=== PATIENT | male | born 1935 | race Caucasian/White ===

== ENCOUNTER 2020-02-22 12:45 | Inpatient (IN) | payer MEDICARE ==
[~2020-02-22] VITALS: Ht 180.3 cm; Wt 89.7 kg
[~2020-02-22 12:45] MED LIST: ASPI81CH PO; LISI5 PO; THERAPEUTIC-M1 EAC3 PO; VERA180ERB PO
[2020-02-22 13:15] LABS: Calcium, Ionized (POC) 1.09 mmol/L (1.10-1.46); Chloride (POC) 100 mmol/L (98-108); Creatinine (POC) 1.1 mg/dL (0.8-1.3); Glucose (ISTAT POC) 102 mg/dL (70-99); Hemoglobin (POC) 13.3 g/dL (13.5-17.5); Potassium (POC) 4.1 mmol/L (3.5-5.5); Sodium (POC) 133 mmol/L (135-148); Total CO2 (POC) 21 mmol/L (21-32)
[2020-02-22 13:29] LABS: Hematocrit 39.8 % (37.0-53.0); Hemoglobin 13.6 g/dL (13.5-17.5); Mean Corpuscular HGB 31.1 pg (26.0-34.0); Mean Corpuscular HGB Conc 34.2 g/dL (31.5-36.5); Mean Corpuscular Volume 91 fL (80-100); Mean Platelet Volume 9.8 fL (9.1-12.4); Platelet Count 232 K/mm3 (150-400); RDW Coefficient Variation 13.5 % (11.7-14.2); RDW Standard Deviation 45.3 fL (35.1-46.3); Red Blood Cell Count 4.38 M/mm3 (4.30-5.90); White Blood Cell Count 11.59 K/mm3 (4.00-11.30)
[2020-02-22 14:05] LABS: Alanine Aminotransfer (ALT/SGP 18 U/L (12-78); Albumin, Blood 3.2 g/dL (3.4-5.0); Albumin/Globulin Ratio 1.2 (0.8-1.8); Alk Phos 71 U/L (50-136); Anion Gap 12 mmol/L (6-16); Aspartate Aminotrans (AST/SGOT 13 U/L (12-37); Bilirubin, Total 0.3 mg/dL (0.1-1.0); Blood Urea Nitrogen 16 mg/dL (8-24); Bun/Creatinine Ratio 15.1 (12.0-20.0); CHOL/HDL RATIO 2.8; CO2, Blood 21 mmol/L (21-32); Calcium, Blood 8.3 mg/dL (8.5-10.1); Chloride, Blood 105 mmol/L (98-108); Cholesterol 191 mg/dL (50-200); Creatinine, Blood 1.06 mg/dL (0.60-1.20); Globulin, Blood 2.6 g/dL (2.2-4.0); Glomerular Filtration Rate >60 (60-); Glucose, Blood 100 mg/dL (70-99); HDL Cholesterol 69 mg/dL (>39); LDL/HDL RATIO 1.4; Low Density Lipoprotein Chol 94 mg/dL (0-110); Magnesium, Blood 2.1 mg/dL (1.6-2.4); Potassium, Blood 4.3 mmol/L (3.5-5.5); Sodium, Blood 138 mmol/L (136-145); Total Protein, Blood 5.8 g/dL (6.4-8.2); Triglycerides 139 mg/dL (30-160); Troponin I <0.015 ng/mL (0.000-0.040); Very Low Density Lipoprot Chol 28 mg/dL (6-32)
--- NOTE | 2020-02-22 15:53 | NUR ---
ADMIT PT ARRIVED TO ICU 8 AT 1530, ALERT AND ORIENTED. SHEATH TO R GROIN WITH PRESSURE BAG HOOKED UP. SITE C/D/I, SOFT, NO HEMATOMA. PT GIVEN INSTRUCTIONS REGARDING ACTIVITY RESTRICTIONS AND HE VERBALIZED UNDERSTANDING. PT'S AT THE BEDSIDE. CONTINUING TO MONITOR.
[2020-02-22] MEDS ORDERED: Prinivil10 MG PO (16:21)
[2020-02-22] MEDS ORDERED: VERA180ERB PO (16:21)
[2020-02-22] MEDS ORDERED: ASPI325 PO (16:21)
--- NOTE | 2020-02-22 18:01 | NUR ---
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 HE REMAINS ALERT AND ORIENTED. DENIES CHEST PAIN. HE IS BEING COOPERATIVE, LAYING FLAT WITH THE SHEATH STILL IN PLACE. HEPARIN GTT INFUSING THROUGH FEMORAL SHEATH. SITE IS C/D/I, SOFT, NO HEMATOMA. LUNGS REMAIN CLEAR, SR, BP STABLE. NO VOID YET THIS SHIFT. CONTINUING TO MONITOR.
[2020-02-22 20:38] LABS: Source, Urine Catheter
[2020-02-22 20:43] LABS: Appearance, Urine Clear (Clear); Bilirubin, Urine Neg (Neg); Blood, Urine 1+ (Neg); Color, Urine Yellow (P-Yellow); Glucose Qualitative, Urine Neg (Neg); Ketones, Urine 3+ (Neg); Leukocyte Esterase, Urine Neg (Neg); Nitrite, Urine Neg (Neg); Protein, Urine Neg (Neg); Urobilinogen, Urine NORM (Normal)
[2020-02-22 20:52] LABS: Red Blood Cells, Urine 0-2 /hpf (0-2); White Blood Cells, Urine 0-2 /hpf (0-5)
[2020-02-22 20:53] LABS: Bacteria Few /hpf; Hyaline Casts 0-2 /lpf (0-2); Squamous Epithelial Cells Not Seen /hpf (Few)
--- NOTE | 2020-02-22 21:29 | NUR ---
PATIENT IN BED LAYING FLAT, AVOIDING HIP FLEXION AND KEEPING LEGS STRAIGHT DUE TO SHEATH IN PLACE TO RIGHT GROIN, HEPARIN DRIP INFUSING TO SHEATH. SITE SOFT WITH NO OOZING. DOPPLER PULSES TO BOTH FEET. PATIENT DENIES PAIN. MICHAELS PLACED DRAINING CLEAR YELLOW URINE. BLUEPRINT DEVELOPER SHOWING SINUS RHYTHM WITH OCCASIONAL PVC SEE RHYTHM STRIPS. PATIENT VALDO PO WELL. PATIENT VERBALIZED UNDERSTANDING REGARDING KEEPING LEGS FLAT AND AVOIDING GROIN FLEXION.
[2020-02-23 03:37] LABS: BASOPHILS ABSOLUTE AUTO 0.06 K/mm3 (0.00-0.23); BASOPHILS PERCENT AUTO 1 % (0-2); EOSINOPHILS ABSOLUTE AUTO 0.27 K/mm3 (0.00-0.68); EOSINOPHILS PERCENT AUTO 2 % (0-6); Hematocrit 39.1 % (37.0-53.0); Hemoglobin 13.4 g/dL (13.5-17.5); IMMATURE GRAN ABSOLUTE AUTO 0.06 K/mm3 (0.00-0.10); IMMATURE GRAN PERCENT AUTO 1 % (0-1); LYMPHOCYTES PERCENT AUTO 15 % (21-46); MONOCYTES ABSOLUTE AUTO 0.84 K/mm3 (0.16-1.47); MONOCYTES PERCENT AUTO 7 % (4-13); Mean Corpuscular HGB 31.2 pg (26.0-34.0); Mean Corpuscular HGB Conc 34.3 g/dL (31.5-36.5); Mean Corpuscular Volume 91 fL (80-100); NEUTROPHILS ABSOLUTE AUTO 8.68 K/mm3 (1.96-9.15); NEUTROPHILS PERCENT AUTO 75 % (41-73); Platelet Count 229 K/mm3 (150-400); RDW Coefficient Variation 13.7 % (11.7-14.2); RDW Standard Deviation 45.2 fL (35.1-46.3); Red Blood Cell Count 4.29 M/mm3 (4.30-5.90); White Blood Cell Count 11.61 K/mm3 (4.00-11.30)
[2020-02-23 04:10] LABS: Anion Gap 5 mmol/L (6-16); Blood Urea Nitrogen 14 mg/dL (8-24); CO2, Blood 27 mmol/L (21-32); CPK Creatine Kinase 298 U/L (39-308); Chloride, Blood 104 mmol/L (98-108); Creatine Kinase MB Index 13.4 (0.0-4.0); Creatinine, Blood 0.87 mg/dL (0.60-1.20); Glomerular Filtration Rate >60 (60-); Glucose, Blood 97 mg/dL (70-99); Potassium, Blood 4.4 mmol/L (3.5-5.5); Sodium, Blood 136 mmol/L (136-145)
--- NOTE | 2020-02-23 05:53 | NUR ---
SUMMARY PATIENT SLEEPING OFF AND ON T/O NIGHT. SHEATH REMAINS IN PLACE TO RIGHT GROIN, HEPARIN NOW OFF AND PRESSURE LINE IN PLACE. NO C/O PAIN T/O NIGHT. PLAN TO REMOVE SHEATH TODAY AT 1000 IF PTT LESS THAN 40
--- NOTE | 2020-02-23 09:02 | NUR ---
ASSUMED CARE OF PT. PT SLEEPING, AROUSES TO VOICE. DENIES C/O CHEST PAIN. PT SUPINE/FLAT PER PROTOCOL SHEATH IS TO RIGHT GROIN. SHEATH IS ATTATCHED TO PRESSURE BAG. PTT TO BE DRAWN AT 0930. IF PTT<40, SHEATH TO BE REMOVED. RIGHT GROIN W/O SWELLING, HEMATOMA, BLEEDING, OR PAIN. ECHO IN PROGRESS.
--- NOTE | 2020-02-23 11:09 | NUR ---
Echocardiogram using 0.50ml of Definity contrast performed.
--- NOTE | 2020-02-23 11:40 | NUR ---
PTT <40SEC. R GROIN SHEATH REMOVED AT 1O48, MAUNAL PRESSURE HELD X 35MIN. OPSITE TO R GROIN. SITE W/O HEMATOMA, SWELLING, BLEEDING. PT EDUCATED TO HOLD PRESSURE TO GROIN IF HE COUGHS/SNEEZES. DR CONWAY IN TO SEE PT. TOPROL XL ADDED. PT TO STAY SUPINE X 4HRS PER DR CONWAY.
[2020-02-23 16:17] LABS: Hemoglobin 15.2 g/dL (13.5-17.5)
--- NOTE | 2020-02-23 17:13 | NUR ---
AT 1545 DURING ASSESSMENT PT C/O SEVERE RIGHT LOWER BACK PAIN W DEEP BREATH. BP STABLE. DR CONWAY CALLED. STAT CT OD ABD/PELVIS ORDERED, ALONG W STAT H&H. NO RETROPERITONEAL BLEED PER DR CONWAY. H&H STABLE. ABD AORTA ANEURYSM FOUND ON CT SCAN; STABLE. PT WILL BE FOLLOWED UP OUTPT PER DR CONWAY. FEM STOP LOOSENED. PT SAT UP TO 30DEGREES; DOING WELL AT THIS TIME. PAIN MEDS ORDERED PRN FOR CHRONIC BACK PAIN.
--- NOTE | 2020-02-23 18:53 | NUR ---
FEMSTOP REMOVED. R GROIN SOFT W/O HEMATOMA, SWELLING, BLEEDING. PT STATES HIS BACK FEELS MUCH BETTER SITTING UP.
--- NOTE | 2020-02-23 21:19 | NUR ---
ASSUMPTION OF CARE ASSUMED CARE @ 1900 FROM ABHAY HENNING. PT A&OX4. NORMAL SINUS ON THE DIRECTOR MARKETING ANALYTICS c OCASSIONAL PVC'S. NO COMPLAINTS OF CP, ABD PAIN, OR GROIN SITE PAIN AT THIS TIME. FEMORAL SITE WITH SMALL HEMATOMA/ DRIED BLOOD FROM EARLIER TODAY, CONFIRMED THE SITE HAS NOT CHANGED WITH DAY SHIFT NURSE. FEMSTOP OFF THE PT. WILL CONTIUE TO MONITOR FEMORAL SITE.
--- NOTE | 2020-02-24 00:18 | NUR ---
DIFFICULTY SLEEPING PT REPORTS DIFFICULTY SLEEPING R/T HUMMING SOUND COMING FROM VITAL SIGN MONITOR IN ROOM. OFFERED TO TURN ON A FAN OR PROVIDE EARPLUGS, PT DECLINED AT THIS TIME.
--- NOTE | 2020-02-24 02:55 | NUR ---
FEMSTOP APPLIED APPROXIMATE 4CM HEMATOMA NOTED TO R GROIN SITE, NON-TENDER. VSS. FEMSTOP APPLIED. WILL REASSESS AFTER 10 MINS OF PRESSURE.
--- NOTE | 2020-02-24 05:57 | NUR ---
SHIFT SUMMARY PT REMAINS A&OX4. NO C/O CP, ABD PAIN, OR SOB. FEMORAL ACCESS SITE WITH SMALL HEMATOMA, FEMSTOP PLACED BACK ON THE PATIENT FOR APPROXIMATELY 30 MINUTES. MICHAELS CATHETER WAS ACCIDENTALLY DISLODGED BY PT WHILE SLEEPING. PT STATED HE IS ABLE TO VOID WITHOUT IT.
--- NOTE | 2020-02-24 07:51 | NUR ---
CARE OF PT ASSUMED AT 0700. R GROIN SITE CHECKED WITH NOCT RN. R GROIN WITH SMALL <2CM ROPE LIKE HEMATOMA. AREA IS TENDER, NO SWELLING, NO BLEEDING. OPSITE DRY AND INTACT. PT SBA TO CHAIR FOR BREAKFAST. PT DENIES COMPLAINTS OTHER THAN BEING "FATIGUED FROM BEING IN BED FOR SO LONG". PT VERY ANXIOUS TO BE DISCHARGED HOME THIS AM. VSS.
--- NOTE | 2020-02-24 08:17 | NUR ---
PT SOMEWHAT IRRITABLE WHILE TAKING AM MEDS. PT INSIST THAT HE NEVER TOOK BLOOD THINNERS AFTER HIS OTHER PROCEDURES. PT STATES HIS BP IS HIGH NOW BECAUSE "WE CHANGED HIS MEDS". PT EDUCATED THAT HE WILL NEED TO TAKE A BLOOD THINNER LIKE BRILINTA OR PLAVIX FOR AT LEAST 6MONTHS OR HIS STENTS COULD CLOT LEADING TO . PT REMINDED THAT HE HAD EXTENSIVE CLOTTING TO STENTS WITH THIS HEART ATTACK. PT RESISTANT TO INFORMATION. PT OPEN TO HAVING PRESENT WHEN DR COMES TO TALK TO HIM. PT'S CALLED AND UPDATED. STATES PT IS VERY STUBBORN AND DID STOP TAKING RECOMMENDED BLOOD THINNERS AFTER HIS OTHER PROCEDURES. DR CONWAY CALLED AND UPDATED. DR CONWAY WILL COME TALK WITH PT WHEN AT BEDSIDE; AROUND 9:30.
[2020-02-24] MEDS ORDERED: TICA90TA PO (12:45)
[2020-02-24] MEDS ORDERED: METO25ER PO (12:46)
[2020-02-24] MEDS ORDERED: NITROGLYCERIN (12:50)
--- NOTE | 2020-02-24 14:15 | NUR ---
DR CONWAY AT BEDSIDE TO SEE PT AT 1130. AT BEDSIDE WELL. PT AGREEABLE TO MEDICATION CHANGES INCLUDING TAKING BRILINTA AND ASA FOR A FULL YEAR. PT AND PT'S EXPRESSED HAPPINESS THAT DR CONWAY WILL BE HIS NEW RECREATION WORKER. DR CONWAY DID CHECK R GROIN AND ALSO NOTED A SMALL KNOT/HEMATOMA. DISCHARGE ORDERS WRITTEN. [facility] BRIL[facility]TA ( [facility] NOT C[facility] THIS) WHICH WAS CALLED INTO [facility]. PT HAS A NEW PCP AT [facility] (BECKY SUAREZ) THIS INFO WAS GIVEN TO PT/PT'S . VERBAL AND WRITTEN DC INFO GIVEN TO BOTH PT AND PT'S REGARDING MEDS, APPOINTMENTS, AND GROIN CARE. BRILINTA AND ASA CONTRACT SIGNED BY PT. FEM ART ACCESS DC FORM GIVEN TO PT. FOLLOW UP APPOINTMENT MADE FOR PT. STENT CARD GIVEN TO PT. BRILINTA SAVINGS CARD GIVEN TO PT. PT AND ENCOURAGED TO CALL BACK IF THEY HAVE ANY QUESTIONS OR CONCERNS.
== END 2020-02-24 13:44 | disposition home or self-care (01) | DRG 247 ==
LOC: ER 12:45 → ICUW 13:17 → ICUE 13:17
PROVIDERS: Emergency Medicine; ADMIT Internal Medicine Interventional Cardiology
PROC: 027136Z Dilation of Coronary Artery, Two Arteries with Three Drug-eluting Intraluminal Devices, Percutaneous Approach (ICD-10-PCS; principal; 2020-02-22)
PROC: 4A023N7 Measurement of Cardiac Sampling and Pressure, Left Heart, Percutaneous Approach (ICD-10-PCS; 2020-02-22)
PROC: B2111ZZ Fluoroscopy of Multiple Coronary Arteries using Low Osmolar Contrast (ICD-10-PCS; 2020-02-22)
PROC: B2121ZZ Fluoroscopy of Single Coronary Artery Bypass Graft using Low Osmolar Contrast (ICD-10-PCS; 2020-02-22)
PROC: B41D1ZZ Fluoroscopy of Aorta and Bilateral Lower Extremity Arteries using Low Osmolar Contrast (ICD-10-PCS; 2020-02-22)
PROC: 02C03ZZ Extirpation of Matter from Coronary Artery, One Artery, Percutaneous Approach (ICD-10-PCS; 2020-02-22)
DX: I21.09 ST elevation (STEMI) myocardial infarction involving other coronary artery of anterior wall (principal); T82.855A Stenosis of coronary artery stent, initial encounter; K51.90 Ulcerative colitis, unspecified, without complications; I25.10 Atherosclerotic heart disease of native coronary artery without angina pectoris; Z95.1 Presence of aortocoronary bypass graft; Z87.891 Personal history of nicotine dependence; Z79.82 Long term (current) use of aspirin; I10 Essential (primary) hypertension; I49.3 Ventricular premature depolarization; E78.5 Hyperlipidemia, unspecified
CPT/HCPCS: 36415; 51702; 71045; 74177; 80047; 80048; 80053; 80061; 81001; 82550; 82553; 83735; 84484; 85014; 85018; 85025; 85027; 85347; 85730; 86850; 86900; 86901; 93005; 93010; 93458; 99152; 99153; 99285-25; A9270-GY; C1725; C1757; C1769; C1874; C1884; C1887; C1894; C8929; C9605; C9606; J0461; J1644; J2250; J3010; J7030; J7040; Q9957; Q9967

== ENCOUNTER 2021-10-20 04:06 | Inpatient (IN) | payer OTHER ==
[~2021-10-20] VITALS: Ht 180.3 cm; Wt 80.8 kg
[~2021-10-20 04:06] MED LIST changes: +ASPI325 PO; +METO25ER PO; +NITROGLYCERIN; +Prinivil10 MG PO; +TICA90TA PO
[2021-10-20] MEDS ORDERED: LOW DOSE ASPIRI81 M1 (05:14)
[2021-10-20 07:41] LABS: Albumin, Blood 3.3 g/dL (3.4-5.0); Bilirubin, Total 0.6 mg/dL (0.1-1.0); Bun/Creatinine Ratio 8.5 (12.0-20.0); Calcium, Blood 8.6 mg/dL (8.5-10.1); Creatinine, Blood 8.01 mg/dL (0.60-1.20); Globulin, Blood 3.2 g/dL (2.2-4.0); Total Protein, Blood 6.5 g/dL (6.4-8.2)
[2021-10-20 08:09] LABS: BASOPHILS ABSOLUTE AUTO 0.03 K/mm3 (0.00-0.23); BASOPHILS PERCENT AUTO 0 % (0-2); EOSINOPHILS ABSOLUTE AUTO 0.01 K/mm3 (0.00-0.68); EOSINOPHILS PERCENT AUTO 0 % (0-6); Hematocrit 42.1 % (37.0-53.0); Hemoglobin 13.2 g/dL (13.5-17.5); IMMATURE GRAN PERCENT AUTO 1 % (0-1); LYMPHOCYTES ABSOLUTE AUTO 1.22 K/mm3 (0.84-5.20); LYMPHOCYTES PERCENT AUTO 8 % (21-46); MONOCYTES ABSOLUTE AUTO 1.09 K/mm3 (0.16-1.47); MONOCYTES PERCENT AUTO 8 % (4-13); Mean Corpuscular HGB 30.4 pg (26.0-34.0); Mean Corpuscular HGB Conc 31.4 g/dL (31.5-36.5); Mean Corpuscular Volume 97 fL (80-100); Mean Platelet Volume 11.2 fL (9.1-12.4); NEUTROPHILS ABSOLUTE AUTO 12.13 K/mm3 (1.96-9.15); NEUTROPHILS PERCENT AUTO 83 % (41-73); Platelet Count 315 K/mm3 (150-400); RDW Coefficient Variation 14.4 % (11.7-14.2); RDW Standard Deviation 51.4 fL (35.1-46.3); Red Blood Cell Count 4.34 M/mm3 (4.30-5.90); White Blood Cell Count 14.58 K/mm3 (4.00-11.30)
[2021-10-20 09:40] LABS: Chloride (POC) 108 mmol/L (98-108); Creatinine (POC) 8.2 mg/dL (0.8-1.3); Glucose (ISTAT POC) 135 mg/dL (70-99); Hemoglobin (POC) 10.2 g/dL (13.5-17.5); Potassium (POC) 5.1 mmol/L (3.5-5.5); Sodium (POC) 135 mmol/L (135-148); Total CO2 (POC) 16 mmol/L (21-32)
[2021-10-20 11:21] LABS: Blood, Urine 2+ (Neg); Glucose Qualitative, Urine Neg (Neg); Ketones, Urine 1+ (Neg); Leukocyte Esterase, Urine 1+ (Neg); Nitrite, Urine Neg (Neg); Protein, Urine 2+ (Neg); Specific Gravity, Urine 1.025 (1.003-1.022); Urobilinogen, Urine NORM (Normal)
[2021-10-20 11:28] LABS: Appearance, Urine Hazy (Clear); Bilirubin, Urine 2+ (Neg); Color, Urine Yellow (P-Yellow)
[2021-10-20 11:29] LABS: Squamous Epithelial Cells Few /hpf (Few)
[2021-10-20 11:30] LABS: Bacteria Rare /hpf
[2021-10-20 13:41] LABS: Phosphorus, Blood 5.1 mg/dL (2.5-4.9); Uric Acid, Blood 10.9 mg/dL (3.5-7.2)
[2021-10-20 14:07] LABS: Bun/Creatinine Ratio 8.4 (12.0-20.0); Calcium, Blood 8.2 mg/dL (8.5-10.1)
--- NOTE | 2021-10-20 17:38 | NUR ---
SHIFT SUMMARY PATIENT ARRIVED ON FLOOR AT 1530. PATIENT IS ALERT AND ORIENTED. PATIENT IS HARD OF HEARING. FAMILY HAS BEEN AT BEDSIDE SINCE PATIENT ARRIVED. PATIENT HAS A CRITICAL HIGH POTASSIUM OF 6.0. GAVE INSULIN AND DEXTROSE. GOT ORDER FOR FITNESS MANAGEMENT DIRECTOR, PATIENT RUNNING SINUS IN 80S. VITAL SIGNS REVIEWED. BED IN LOCKED AND LOWEST POSITION. CALL LIGHT IN PLACE. WILL MONITOR UNTIL SHIFT CHANGE.
[2021-10-20 20:12] LABS: Bun/Creatinine Ratio 8.4 (12.0-20.0); Calcium, Blood 7.9 mg/dL (8.5-10.1); Creatinine, Blood 8.22 mg/dL (0.60-1.20); Potassium, Blood 5.5 mmol/L (3.5-5.5)
[2021-10-21 02:14] LABS: Bun/Creatinine Ratio 8.4 (12.0-20.0); Calcium, Blood 7.7 mg/dL (8.5-10.1); Creatinine, Blood 8.66 mg/dL (0.60-1.20); Potassium, Blood 5.4 mmol/L (3.5-5.5)
--- NOTE | 2021-10-21 04:35 | NUR ---
RECIEVED SEVERAL NOTIFICATIONS ABOUT CRITICAL LABS BOTH CREATININE AND POTASSIUM. DR BURNS AND HOSPITALIST INFORMED OF CHANGE IN VALUS. ANOTHE DOSE OF INSULIN AND DEXTROSE WERE ORDERED. PT BECGN SHOWING SIGNS OF FLUID OVERLOAD. +3 PITTING EDEMA BLES, COARSE BASES TO THE LUNGS, WET COUGH, AND HE STATED HIS FELT BLOATED. NERPHROLOGIST ORDERED ALL FLUIDS STOPPED AND WOULD FOLLOW UP WITH THE PATIENT IN THE MORNING.
--- NOTE | 2021-10-21 05:32 | NUR ---
SHIFT SUMMARY SEE EARLIER NOT ABOUT NEPHROLOGY AND CRITICAL LAB CALLS. PT IS RESTING IN BED. DAUGHTER HAS REMAINED WITH HIM ALL NIGHT TO HELP WITH HIM NEEDING TO USE THE URNAL. PT STILL HAS NOT HAD OUTPUT, AND BLADDER SCANS SHOW NO URINE RETAINED. FLUIDS STOPPED. NEPHROLOGY WILL CONSULT IN THE AM. BED IN THE LOWEST POSITION AND CALL LIGHT WITHIN REACH
[2021-10-21 07:57] LABS: BASOPHILS ABSOLUTE AUTO 0.03 K/mm3 (0.00-0.23); BASOPHILS PERCENT AUTO 0 % (0-2); EOSINOPHILS ABSOLUTE AUTO 0.14 K/mm3 (0.00-0.68); EOSINOPHILS PERCENT AUTO 1 % (0-6); Hematocrit 33.6 % (37.0-53.0); Hemoglobin 11.2 g/dL (13.5-17.5); IMMATURE GRAN ABSOLUTE AUTO 0.07 K/mm3 (0.00-0.10); IMMATURE GRAN PERCENT AUTO 1 % (0-1); LYMPHOCYTES ABSOLUTE AUTO 1.36 K/mm3 (0.84-5.20); LYMPHOCYTES PERCENT AUTO 12 % (21-46); MONOCYTES ABSOLUTE AUTO 1.19 K/mm3 (0.16-1.47); MONOCYTES PERCENT AUTO 10 % (4-13); Mean Corpuscular HGB 30.5 pg (26.0-34.0); Mean Corpuscular HGB Conc 33.3 g/dL (31.5-36.5); NEUTROPHILS ABSOLUTE AUTO 8.91 K/mm3 (1.96-9.15); NEUTROPHILS PERCENT AUTO 76 % (41-73); Platelet Count 261 K/mm3 (150-400); RDW Coefficient Variation 14.1 % (11.7-14.2); RDW Standard Deviation 47.7 fL (35.1-46.3); Red Blood Cell Count 3.67 M/mm3 (4.30-5.90)
[2021-10-21 07:59] LABS: Mean Corpuscular Volume 92 fL (80-100)
[2021-10-21 08:22] LABS: Albumin, Blood 2.8 g/dL (3.4-5.0); Anion Gap 11 mmol/L (6-16); Blood Urea Nitrogen 73 mg/dL (8-24); CO2, Blood 23 mmol/L (21-32); Calcium, Blood 7.8 mg/dL (8.5-10.1); Chloride, Blood 101 mmol/L (98-108); Glucose, Blood 79 mg/dL (70-99); Phosphorus, Blood 4.5 mg/dL (2.5-4.9); Potassium, Blood 4.9 mmol/L (3.5-5.5); Sodium, Blood 135 mmol/L (136-145)
[2021-10-21 08:23] LABS: Bun/Creatinine Ratio 8.4 (12.0-20.0); Creatinine, Blood 8.68 mg/dL (0.60-1.20); Glomerular Filtration Rate 5 (60-)
[2021-10-21 11:58] LABS: Influenza A, PCR NEGATIVE (NEGATIVE); Influenza B, PCR NEGATIVE (NEGATIVE); Resp Syncytial Virus, PCR NEGATIVE (NEGATIVE); SARS-Cov-2 (COVID-19) PCR, MMC NEGATIVE (NEGATIVE)
--- NOTE | 2021-10-21 12:39 | NUR ---
NURSE NOTE PATIENT WAS REPORTING CHEST PAIN. THIS RN CALLED TELE MONITOR AND REPORTED TO HAVE NO RECENT CHANGES PRIOR TO PATIENT REPORTING. CALLED DR TO REPORT CHEST PAIN. THIS RN ORDER TROPONIN LABS AND EKG. PATIENT TOOK TWO NITRO TABS WITH CHEST PAIN RELIEF. WILL MONITOR FURTHER.
--- NOTE | 2021-10-21 16:58 | NUR ---
ARTIE FRY PER DR ROSE.
--- NOTE | 2021-10-21 17:51 | NUR ---
SHIFT SUMMARY PATIENT IS ALERT AND ORIENTED. PATIENT HAS BEEN PLEASENT AND COOPERATIVE THIS SHIFT. PATIENT HAS HAD CHEST PAIN IN THE MORNING, GAVE TYLENOL AND NITRO TWICE WHICH RESOLVED CHEST PAIN. TELE NEPHRO CONSULT WAS DONE THIS MORNING. PERMACATH WAS PUT IN MY DR DOMINGUEZ. PATIENT ARRIVED TO MEDICAL FLOOR AND DIALYSIS WAS STARTED AT 1730. PATIENT HAS NO COMPLAINTS OF NAUSEA, SOB OR VOMITTING THIS SHIFT. VITAL SIGNS REVIEWED. BED IN LOWEST AND LOCKED POSITION. CALL LIGHT IN PLACE. WILL MONITOR UNTIL SHIFT CHANGE.
--- NOTE | 2021-10-21 20:00 | NUR ---
UPDATE GRINDER SET UP OPERATOR CENTERLESS CALLED THIS RN TO ROOM FOR ASSISTANCE. PATIENT BLEEDING FROM PERMACATH SITE. MULTIPLE CLOTS CLEANED UP FROM PATIENT. GRINDER SET UP OPERATOR CENTERLESS COVERING PERMACATH AND APPLYING REINFORCEMENT BANDAGING. SAND BAG AT BEDSIDE IF NEEDED. GRINDER SET UP OPERATOR CENTERLESS TO MANAGE PORT AND DRESSING. WILL REINFORCE IF NECESSARY. WILL HOLD 2100 HEPARIN D/T BLEEDING. PARTIAL BEDBATH COMPLETE. PATIENT RESTING WELL. DAUGHTER AT BEDSIDE.
--- NOTE | 2021-10-21 21:08 | NUR ---
DIALYSIS PT RETURNED FROM HAVING PERMA CATH PLACED IN OR. SITE WAS BLEEDING PROFUSELY. CHANGED DRESSING AND APPLIED ADAMA DRESSING WITH SEVERAL 2X2 FOR PRESSURE. OPSITE DRESSING ON TOP. PT SITTING UP IN BED. STARTED DIALYSIS. CONTINUED TO BLEED. TOOK OFF EVERY TO THE ADAMA, LEFT IT ON. PLACED MORE ADAMA ON WITH MORE 2X2'S AND OPSITE. CONTINUED TO BLEED. AFTER TX, TOOK EVERYTHING OFF DOWN TO THE ADAMA. ALOT OF CLOTTED BLOOD, APPEARED TO BE SLOWING DOWN. ADDED MORE 2X2 OPSITE AND STRETCHY TAPE. MED FLOOR NURSE AND PLANNING FEEDER KINDLY OFFERED TO CLEAN HIM UP.
--- NOTE | 2021-10-22 02:00 | NUR ---
0200 DURING 0200 ROUNDING, PATIENT'S PERMACATH SITE APPEARS TO BE LEAKING AND HOPE PAD SATURATED WITH BLOOD. MODERATE AMOUNT OF BLOOD SLOWLY DRIPPING UNDER TEGADERM. PHARMACY SPECIALIST AT BEDSIDE ASSISTING WITH BANDAGE REINFORCEMENT. SAND BAG PLACED TO ASSIST WITH CLOTTING. LARGE CLOT PRESENT UNDER TRANSPARENT DRESSING.
--- NOTE | 2021-10-22 04:12 | NUR ---
NO AM LABS NO AM LABS ORDERED FOR PATIENT. CALL PLACED TO HOSPITALIST. HOSPITALIST UPDATED ON BLEEDING FROM [facility] AND IS AWARE OF ELECTROLYTE IMBALANCE ON ADMISSION. ORDER RECIEVED FOR AM LAB DRAW.
[2021-10-22 04:49] LABS: Hematocrit 33.7 % (37.0-53.0); Hemoglobin 11.4 g/dL (13.5-17.5); Mean Corpuscular HGB 30.5 pg (26.0-34.0); Mean Corpuscular HGB Conc 33.8 g/dL (31.5-36.5); Mean Corpuscular Volume 90 fL (80-100); Mean Platelet Volume 10.5 fL (9.1-12.4); Platelet Count 314 K/mm3 (150-400); RDW Coefficient Variation 13.9 % (11.7-14.2); RDW Standard Deviation 45.5 fL (35.1-46.3); Red Blood Cell Count 3.74 M/mm3 (4.30-5.90); White Blood Cell Count 11.46 K/mm3 (4.00-11.30)
[2021-10-22 05:06] LABS: BAND PERCENT MAN 2 % (0-8); BASOPHILS PERCENT MAN 0 % (0-2); EOSINOPHILS PERCENT MAN 0 % (0-6); LYMPHOCYTES ABSOLUTE MAN 0.22 K/mm3 (0.84-5.20); LYMPHOCYTES PERCENT MAN 2 % (21-46); METAMYELOCYTE ABSOLUTE MAN 0.22 K/mm3 (0.00-0.00); METAMYELOCYTE PERCENT MAN 2 % (0-0); MONOCYTES ABSOLUTE MAN 0.34 K/mm3 (0.16-1.47); MONOCYTES PERCENT MAN 3 % (4-13); NEUTROPHILS ABSOLUTE MAN 10.65 K/mm3 (1.96-9.15); SEG NEUTROPHILS PERCENT MAN 91 % (41-73); TOTAL CELLS COUNTED 100
[2021-10-22 05:11] LABS: Albumin, Blood 2.5 g/dL (3.4-5.0); Albumin/Globulin Ratio 0.9 (0.8-1.8); Bilirubin, Total 0.6 mg/dL (0.1-1.0); Bun/Creatinine Ratio 7.9 (12.0-20.0); Calcium, Blood 7.7 mg/dL (8.5-10.1); Creatinine, Blood 7.77 mg/dL (0.60-1.20); Globulin, Blood 2.9 g/dL (2.2-4.0); Potassium, Blood 5.8 mmol/L (3.5-5.5); Total Protein, Blood 5.4 g/dL (6.4-8.2)
--- NOTE | 2021-10-22 05:30 | NUR ---
UPDATE/SHIFT SUMMARY PATIENT COMPLAINING OF BURNING IN HIS URETHRA. MEDICATED WITH FENTYNAL WITH MINIMAL RELIEF. PATIENT PULLING AT PENIS AND CONTINUES TO YELL OUT STATING "SOMEONE JUST KNOCK ME OUT, I NEED A KNOCK OUT SHOT". 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 PER PATIENT'S DAUGHTER PYRIDIUM IS NOT AN OPTION BECAUSE IT HAS NOT WORKED FOR HIM BEFORE. CALL PLACED TO HOSPITALIST AND SUGGESTED ATIVAN AND UROJET. ORDER RECIEVED, SEE UPDATED EMAR/ORDERS. ATIVAN GIVEN AND UROJET JELLY INSERTED INTO URETHRA. PATIENT CONTINUES TO MOAN AND YELL OUT D/T SENSATION. DESIZING PAD OPERATOR AWARE. PATIENT ALERT AND ORIENTED, ABLE TO MAKE NEEDS KNOWN TO STAFF. DAUGHTER AT BEDSIDE T/O NIGHT. VSS, MEDICATED PER EMAR FOR HTN WITH SYSTOLIC >160. REMAINS ON RA WITH O2 SAT >90%. SAND BAG IN PLACE, ATTEMPT TO REMOVE AFTER OOZING STOPPED BUT PATIENT STATED "I WANT TO KEEP IT ON JUST TO GET THIS TO STOP BLEEDING". NO OTHER CHANGE FROM PREVIOUS NOTES. WILL REPORT TO DAY SHIFT RN.
--- NOTE | 2021-10-22 14:02 | NUR ---
Initial pal care visit after case conference with RN and review of EMR. Pt was asleep when I entered room and asked that I not visit at this time. Daniella stepped out into the rodriguez with me so we could discuss his s/s and pain management. She gave hx of current illness and recent stay at [facility], procedures and concerns. We reviewed current medications ordered for pain, nonverbal indicators of pain to report, plan for ongoing f/u of bladder cancer with OP PET scan and oncology consult, need for HD for FILIBERTO currently. She states her dad is normally very stoic and does not usually use pain medications ordered after procedures etc. She said this am he was crying out in pain and begging for relief of sharp, grabbing, spasmotic and stabbing pain in lower abdomen. She stated he was saying, "just kill me" out of pain and misery. Pt is an independent with ADL's, "young 86". He recently had a bladder cancer tumor debulking at [facility] but they were not able to fully resect tumor mass. He had a uretal stent placed and then later removed at last week. At home he experienced N/V, poor PO intake, flank pain and decrease in UO and then no UO x 1-2 days prior to admission for FILIBERTO and hyperkalemia. Pt has prior hx of CAD, CVA. His , also appears to be a young octogenarian and she remained at bedside during my visit with daniella, just outside of room. Planned with daniella to return tomorrow for s/s assessment. Assisted daniella with formulating a list of questions for providers and dialysis staff re: pain medication administration and dialysis interactions. I wrote down current medications, dosing and frequency for daniella. 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 She also looks fatigued and overwhelmed/stressed with her dad's illness. She verbalized having difficulty remembering information provided. If pt's bladder pain is not well managed with current analgesic regimen as ordered and ditropan, would talk with re:? if neurontin would be possible tx of bladder pain that may have a nerve pain component.
--- NOTE | 2021-10-22 18:37 | NUR ---
SHIFT SUMMARY; PATIENT HAD DIALYSIS TODAY AND 2 LITERS REMOVED. SUSANNA COMPLAINS OF BEING PAINFULL IN HIS PENIS WITH BURNING SENSATION THAT IS INTOLERABLE. ALSO COMPLAINS OF BLADDER AND KIDNEY SPASMS. PAIN IS TREATED WITH OXYCODONE 5MG AND THEN FR SEVERE PAIN NOT COVERED BY OXY FENTANYL 50MCG PROVIDED WITH MUCH RESULTS. SPOUSE REMAINS AT BEDSIDE. SHE ASSISTS IN ALL HIS PERSONAL CARE. PATIENT IS AO X4 THROUGHOUT THE DAY. HE HAS A GOOD APPETITE
--- NOTE | 2021-10-23 05:16 | NUR ---
SUMMARY PT CONTINUES TO HAVE PENIS PAIN. PT DID HAVE A SMALL FIRM BM AND REPORTED SIGNIFICANT REDUCTION IN PAIN. PT IS VOIDING URINE. PT STILL REQUIRES FREQUENT PAIN MANAGEMENT. PT DID SLEEP SOME THIS SHIFT. PT CURRENTLY SLEEPING IN NO DISTRESS.
[2021-10-23 08:30] LABS: Albumin, Blood 2.8 g/dL (3.4-5.0); Anion Gap 6 mmol/L (6-16); Blood Urea Nitrogen 53 mg/dL (8-24); CO2, Blood 29 mmol/L (21-32); Chloride, Blood 101 mmol/L (98-108); Creatinine, Blood 5.88 mg/dL (0.60-1.20); Glomerular Filtration Rate 9 (60-); Glucose, Blood 102 mg/dL (70-99); Phosphorus, Blood 4.7 mg/dL (2.5-4.9); Potassium, Blood 5.1 mmol/L (3.5-5.5); Sodium, Blood 136 mmol/L (136-145)
--- NOTE | 2021-10-23 11:59 | NUR ---
PT REQUESTING TO BE OFF TX HE HAS BLADDER PAIN OF 10/10. PT UNABLE TO USE URINAL AND REFUSES TO TRY. PT BECOMING UPSET AND REQUESTS TO BE TAKEN OFF TX. EXPLAINED TO PT THAT WE HAVE STOPPED ONCE DURING THIS TX EARLIER AND THAT HE WILL NOT BE HAVING DIALYSIS TOMORROW. HE VERBALIZES UNDERSTANDING. BLOOD RETURNED. PT UP TO STAND AT BEDSIDE TO VOID. 10CC DARK BRAN URINE. PRIMARY RN AT BEDSIDE. PT RETURNED TO ROOM IN STABLE CONDITION. REPORT TO GEORGINA BURNS UPDATED. STARR
--- NOTE | 2021-10-23 18:33 | NUR ---
SHIFT SUMMARY; PATIENT HAD DIALYSIS TODAY. DID NOT FINISH HD PATIENT INSISTING THAT IT STOP SO HE COULD STAND AND USE THE BATHROOM. DIALYSIS STOPPED AND PATIENT URINATED 10ML IN URINAL AND WAS RETURNED TO MED FLOOR. PATIENT HAD MUCH PAIN TODAY AND WAS MEDICATED WITH OXYCODONE AND FENTANYL FOR PAIN CONTROL. SPOUSE REMAINS AT BEDSIDE AND ASSISTS WITH HIS CARE. VITAL SIGNS ARE STABLE. HE TAKES HIS MEDICATIONS WHOLE WITH WATER WITHOUT DIFFICULTY.
[2021-10-24 00:07] LABS: HBSAG SCREEN Negative (Negative); HCV AB <0.1 (0.0-0.9); HEP A AB, IGM Negative (Negative); HEP B CORE AB, IGM Negative (Negative)
--- NOTE | 2021-10-24 04:07 | NUR ---
SHIFT SUMMARY A/OX4, 1P ASSIST WITH FWW TO BATHROOM. C/O 12/19 ABD PAIN AND BURNING WITH URINATION, MEDICATED PER EMAR. PT ALSO C/O CONTSTIPATION AND NO BM IN OVER A WEEK, SUPPOSITORY ADMINISTERED WITH NO RESULTS. PERMACATH TO RCW. VSS, NO ACUTE CHANGES AT THIS TIME. BED IN LOWEST POSITION WITH CALL LIGHT IN REACH. WILL CONTINUE TO MONITOR AND REPORT TO ONCOMING RN.
[2021-10-24 07:46] LABS: Hematocrit 33.5 % (37.0-53.0); Hemoglobin 11.2 g/dL (13.5-17.5)
[2021-10-24 08:05] LABS: Bun/Creatinine Ratio 10.3 (12.0-20.0); Calcium, Blood 7.8 mg/dL (8.5-10.1); Creatinine, Blood 5.06 mg/dL (0.60-1.20); Potassium, Blood 4.8 mmol/L (3.5-5.5)
--- NOTE | 2021-10-24 11:45 | NUR ---
Palliative Care visit with pt, and jaguar in room. Pt appears calm, comfortable & is receptive to a visit. He tells me he is not currently experiencing pain. We had a long conversation about the possible sources of his pain due to this being of utmost importance to him to understand. I shared what I understood from his Drs' progress notes and my conversations with pt's nurses over the past three days. We discussed his bladder cancer surgery, post op stenting, possible obstruction or pain resulting from inflammation from cancer mass or any remaining cancer in bladder and structures, constipation adding pressure and discomfort, etc. Pt and family verbalize understanding of the information given to them during their telehealth visit with the network systems analyst earlier in the week. Pt states that a number of years ago he was told he had an enlarged prostate. He reports pressure & pain with urination for a very long time, prior to bladder Cancer dx, surgery and recent post-op pain from that. I coached pt on reporting pain before it became intolerable and a crisis for him due to time needed for medication to work & that we may need to use more pain medication if pain allowed to escalate to severe prior to intervention. Pt feels like his kidneys and UO starting to improve. I discussed anxiety with him and inquired if that had been an issue that might be increasing his pain. Pt reports that he does not feel anxious normally and has not felt anxious here unless his pain is out of control. He demonstrated a sudden urgency to void while we were talking and was assisted up to bathroom. He was able to void with in BR. Upon returning to bed, he reported that his pain was starting to increase again. He has not had pain medication since early this am. Pain reported to RN and he medicated per eMar for pt's reported pain. Planned with pt and family for PC RN to check in again tomorrow. Pt and family feel that outside of some short painful episodes that pt is feeling better daily and symptoms less severe. Pt states he is not anxious about the cancer but looking forward to speaking with an oncologist and discussing options. Pt's vision is limited to periphery so standing to one side for conversation is best. He denied nausea. He is anxious to get an enema to relieve constipation. Discussed dietary and constipation preventative needs to incorporate daily as long as he is requiring pain medication and is less active than he normally is. Pt & family verbalized understanding and appreciation for the visit.
--- NOTE | 2021-10-24 14:40 | NUR ---
NURSE NOTE FLEET ENEMA GIVEN WITH MILD RESULTS. SOME STOOL AND RELIEF.
--- NOTE | 2021-10-24 15:53 | NUR ---
SHIFT SUMMARY PATIENT IS ALERT AND ORIENTED. PATIENT IS HARD OF HEARING WITH VISUAL IMPAIRMENTS. PATIENT HAS BEEN PLEASENT AND COOPERATIVE WITH CARE THIS SHIFT. PATIENTS FAMILY HAS BEEN IN ROOM ASSISTING WITH CARE DURING DAY. PATIENT HAS COMPLAINED OF CONSTIPATION. GAVE A FLEET ENEMA TODAY WITH MINIMAL RESULTS, CONFERRED WITH DR AQUINO AND ORDERED AN EVENING ENEMA. PATIENT HAS HAD NO ACUTE EVENTS THIS SHIFT. VITAL SIGNS REVIEWED. PATIENT DID NOT HAVE DIALYSIS TODAY AND REQUESTS PAIN MEDICATION GIVEN PRIOR TO TREATMENT TOMORROW. PATIENT HAS HAD NO COMPLAINTS OF SOB, NAUSEA, VOMITTING. PATIENT HAS BEEN MEDICATED PRN FOR PAIN THIS SHIFT WITH GOOD RESULT. BED IN LOCKED AND LOWEST POSITION. CALL LIGHT IN PLACE.
[2021-10-25 05:41] LABS: Albumin, Blood 2.4 g/dL (3.4-5.0); Anion Gap 10 mmol/L (6-16); Blood Urea Nitrogen 68 mg/dL (8-24); CO2, Blood 28 mmol/L (21-32); Calcium, Blood 7.8 mg/dL (8.5-10.1); Chloride, Blood 98 mmol/L (98-108); Creatinine, Blood 5.65 mg/dL (0.60-1.20); Glomerular Filtration Rate 9 (60-); Glucose, Blood 98 mg/dL (70-99); Phosphorus, Blood 4.3 mg/dL (2.5-4.9); Potassium, Blood 4.6 mmol/L (3.5-5.5); Sodium, Blood 136 mmol/L (136-145)
--- NOTE | 2021-10-25 06:26 | NUR ---
PT IS A/O, STANDBY ASSIST TO RESTROOM WITH FWW. MEDICATED THIS SHIFT FOR PAIN, ENEMA GIVEN WITH RESULTS. PT TO HAVE DIALYSIS TODAY.
--- NOTE | 2021-10-25 16:21 | NUR ---
SHIFT [facility] PATIENT IS ALERT AND ORIENTED. PATIENT IS PLEASENT AND COOPERATIVE WITH CARE THIS SHIFT. PATIENT IS HARD OF HEARING AND VISUALLY IMPARED. PATIENT IS A 1 PERSON TRANSFER TO BATHROOM. PATIENT DID NOT HAVE DIALYSIS TODAY AND IS POSSIBLY HAVING DIALYSIS TOMORROW PENDING LABS. PATIENT HAS HAD NO ACUTE EVENTS THIS SHIFT. PATIENT HAS HAD NO COMPLAINTS OF NAUSEA, SOB OR VOMITTING THIS SHIFT. PATIENT HAS BEEN GETTING PAIN MEDS PRN WITH RELIEF. BED IN LOCKED AND LOWEST POSITION. CALL LIGHT IN PLACE. WILL MONITOR UNTIL SHIFT CHANGE.
--- NOTE | 2021-10-26 03:48 | NUR ---
PATIENT WITH VSS ON RA OVERNIGHT. VISITOR IN ROOM OVERNIGHT TO HELP HIM TO TH BATHROOM. FREQUENT NEED TO VOID WITH URGENCY AND PAIN NOTED. PATIENT ALSO C/O RIB PAIN. MEDICATED PER JUL. DIALYSIS CATH IN PLACE. PATIENT WILL POTNETIALLY NEED DIALYSIS THIS MORNING DEPENDING ON MORNING LABS. NO ACUTE EVENTS OVERNIGHT.
[2021-10-26 06:30] LABS: Albumin, Blood 2.4 g/dL (3.4-5.0); Anion Gap 11 mmol/L (6-16); Blood Urea Nitrogen 82 mg/dL (8-24); Bun/Creatinine Ratio 12.5 (12.0-20.0); CO2, Blood 27 mmol/L (21-32); Chloride, Blood 96 mmol/L (98-108); Creatinine, Blood 6.56 mg/dL (0.60-1.20); Glomerular Filtration Rate 8 (60-); Glucose, Blood 102 mg/dL (70-99); Phosphorus, Blood 4.7 mg/dL (2.5-4.9); Potassium, Blood 4.7 mmol/L (3.5-5.5); Sodium, Blood 134 mmol/L (136-145)
[2021-10-26 14:15] LABS: BASOPHILS ABSOLUTE AUTO 0.04 K/mm3 (0.00-0.23); BASOPHILS PERCENT AUTO 0 % (0-2); EOSINOPHILS ABSOLUTE AUTO 0.16 K/mm3 (0.00-0.68); EOSINOPHILS PERCENT AUTO 1 % (0-6); Hematocrit 32.1 % (37.0-53.0); Hemoglobin 10.7 g/dL (13.5-17.5); IMMATURE GRAN ABSOLUTE AUTO 0.13 K/mm3 (0.00-0.10); IMMATURE GRAN PERCENT AUTO 1 % (0-1); LYMPHOCYTES PERCENT AUTO 9 % (21-46); MONOCYTES ABSOLUTE AUTO 1.22 K/mm3 (0.16-1.47); MONOCYTES PERCENT AUTO 11 % (4-13); Mean Corpuscular HGB 30.5 pg (26.0-34.0); Mean Corpuscular HGB Conc 33.3 g/dL (31.5-36.5); Mean Corpuscular Volume 92 fL (80-100); Mean Platelet Volume 10.4 fL (9.1-12.4); NEUTROPHILS ABSOLUTE AUTO 8.89 K/mm3 (1.96-9.15); NEUTROPHILS PERCENT AUTO 78 % (41-73); Platelet Count 312 K/mm3 (150-400); RDW Coefficient Variation 13.9 % (11.7-14.2); RDW Standard Deviation 47.1 fL (35.1-46.3); Red Blood Cell Count 3.51 M/mm3 (4.30-5.90); White Blood Cell Count 11.44 K/mm3 (4.00-11.30)
--- NOTE | 2021-10-26 17:44 | NUR ---
SHIFT SUMMARY PATIENT HAS BEEN ALERT AND ORIENTED. PATIENT HAS BEEN PLEASENT AND COOPERATIVE WITH CARE THIS SHIFT. PATIENT HAS HAD DIALYSIS THIS MORNING AND 1500ML TAKEN OFF. PATIENT DEVELOPED A WET COUGH AFTER DIALYSIS, DR NOTIFIED. NO FURTHER ORDERS. VITAL SIGNS REVIEWED. CALL LIGHT IN PLACE. HAS BEEN AT BEDSIDE ALL SHIFT. NO ACUTE EVENTS THIS SHIFT. WILL MONITOR UNTIL CLERK OF SUPERIOR COURT.
--- NOTE | 2021-10-27 05:11 | NUR ---
SHIFT SUMMARY NO ACUTE CHANGES OVERNIGHT EXCEPT PT HAD AN EPISODE OF VTACH WITH 7 BEATS AT 0300 AM. PT APPEARS TO BE COMFORTABLY SLEEPING. DAUGHTER AT BEDSIDE. PT DENIES CHEST PAIN BUT REPORTS PAIN WITH HIS HERNIA WHEN COUGHING. PAIN MANAGED WITH RACHELLE 10MG TWICE T/O SHIFT. PT HAS WET COUGH. LUNGS SOUNDS COARSE. PT HAS BEEN RECIEVING ROBITUSSIN. TOLERATING PO INTAKE DENIES NAUSEA AND VOMITING. PT HAD 1 MEDIUM FORMED BOWEL MOVEMENT. VOIDING SMALL AMOUNTS. AMBULATES WITH 1 SBA IN THE BATHROOM. PASSING FLATUS. VSS. DENIES CHEST PAIN, SOB, DIZZINESS AND LIGHT HEADEDNESS. CALL LIGHT WITHIN REACH. WILL CONTINUE TO MONITOR AND WILL PROVIDE REPORT TO ONCOMING NURSE.
[2021-10-27 05:56] LABS: Albumin, Blood 2.3 g/dL (3.4-5.0); Anion Gap 10 mmol/L (6-16); Blood Urea Nitrogen 60 mg/dL (8-24); Bun/Creatinine Ratio 11.2 (12.0-20.0); CO2, Blood 26 mmol/L (21-32); Calcium, Blood 7.8 mg/dL (8.5-10.1); Chloride, Blood 103 mmol/L (98-108); Creatinine, Blood 5.37 mg/dL (0.60-1.20); Glomerular Filtration Rate 10 (60-); Glucose, Blood 98 mg/dL (70-99); Phosphorus, Blood 4.4 mg/dL (2.5-4.9); Potassium, Blood 4.5 mmol/L (3.5-5.5); Sodium, Blood 139 mmol/L (136-145)
--- NOTE | 2021-10-27 17:50 | NUR ---
SHIFT SUMMARY PT AXO, PLEASANT AND COOPERATIVE WITH CARE. BLIND FAMILY PRESENT IN ROOM THROUGHOUT THE SHIFT ASSISTING WITH VOIDS. PT HAS VOIDED X3 THIS SHIFT THOUGH FAMILY COULD NOT STATE HOW MUCH URINE PT HAS VOIDED. VSS. PT MEDICATED FOR PAIN AND COUGH PER EMAR. BED IN LOW POSITION, CALL LIGHT WITHIN REACH
--- NOTE | 2021-10-28 05:01 | NUR ---
SHIFT SUMMARY: PT IS A/OX4. HE IS ON RA, PER ADAPTIVE PHYSICAL EDUCATION SPECIALIST: SR, 1ST AVB, W/ OCCASSIONAL PVCs. HIS DAUGHTER HAS BEEN AT BEDSIDE AND IS VERY HELPFUL IN ASSISTING THE PT TO THE BR. HE IS STEADY ON HIS FEET AND USES A FWW AT BASELINE. THE PT HAS A WET COUGH AND IS HAVING DIFFICULTY EXPECTORATING ALL THE STUFF IN HIS UPPER RESPIRATORY. HE DOES HAVE C/O PAIN AND IS MEDICATED W/ PRN PAIN MEDS VIA EMAR. HIS CALL LIGHT IS WITHIN REACH AND WE'LL CONTINUE TO MONITOR.
[2021-10-28 06:18] LABS: Albumin, Blood 2.7 g/dL (3.4-5.0); Anion Gap 13 mmol/L (6-16); Blood Urea Nitrogen 75 mg/dL (8-24); CO2, Blood 23 mmol/L (21-32); Calcium, Blood 8.6 mg/dL (8.5-10.1); Chloride, Blood 100 mmol/L (98-108); Creatinine, Blood 6.81 mg/dL (0.60-1.20); Glomerular Filtration Rate 7 (60-); Glucose, Blood 116 mg/dL (70-99); Phosphorus, Blood 4.9 mg/dL (2.5-4.9); Potassium, Blood 4.7 mmol/L (3.5-5.5); Sodium, Blood 136 mmol/L (136-145)
--- NOTE | 2021-10-28 12:17 | NUR ---
.DIALYSIS UNABLE TO GET CATH TO RUN. TRIED SWITCHING PORTS, FLUSHING, AND HEPARIN WITHOUT IMPROVEMENT. TALKED TO DR VALLEJO. INSTILLED ALTEPLASE FOR 45 MIN WITHOUT SUCCESS. DC'ED TX AND PACKED CATH WITH ALTAPLASE AGAIN. HAD PT RETURN TO ROOM. NOTIFIED DR VALLEJO.
--- NOTE | 2021-10-28 17:47 | NUR ---
SHIFT SUMMARY PT AXO, PLEASANT AND COOPERATIVE WITH CARE. PT VOMITING THIS SHIFT, HE STATES IS BECAUSE HE IS COUGHING. REFUSES TO USE FLUTTER VALVE AFTER EDUCATION ON HOW TO USE. FAMILY PRESENT IN ROOM THROUGHOUT THE DAY TO ASSIST WITH CARE. DIALYSIS TODAY UNSUCCESSFUL, AWAITING UPDATE FROM DIALYSIS NURSE. PT REFUSED PAIN MEDICATION THROUGHOUT THE DAY. MEDICATED FOR CONSTIPATION PER EMAR. 2 UNMEASURED VOIDS THIS SHIFT, PLUS ONE SMALL VOID OF 25ML. PT REPORTS EXTREME PAIN WITH URINATION. BED IN LOW POSITION, CALL LIGHT WITHIN REACH.
--- NOTE | 2021-10-29 06:16 | NUR ---
SHIFT SUMMARY: PT IS A/OX4. HE DOES SOME RESISTANT TO SOME EDUCATION, BUT IS COOPERATIVE WITH MOST CARE. HE DID REFUSE HIS MUCINEX THIS SHIFT D/T THINKING IT WAS CAUSING HIM TO VOMIT. PER TELE MONITOR: SR/79 1 DEGREE AVB W/ OCCASIONAL PVCs. DAUGHTER WAS AT BEDSIDE AND ASSISTED WITH PT CARE. PT DID NOT HAVE ANY C/O PAIN AND WE'LL CONTINUE TO MONITOR.
--- NOTE | 2021-10-29 10:08 | NUR ---
DIALYSIS UNABLE TO RUN PT YESTERDAY DUE TO CATH NOT WORKING, ACTIVASED FOR 45 MIN. STILL UNABLE TO RUN. PACKED WITH ACTIVASE AND SENT TO ROOM. ABLE TO START TX BUT APPROXIMATELY EVERY 30 SECONDS ART PRESSURE DROPS BELOW -300 AND ALARMS. RETURNED BLOOD. CALLED DR WHITE WHO IS GOING TO CONTACT DR CLARK.
--- NOTE | 2021-10-30 04:27 | NUR ---
PT IS A/OX4. THE PT DID REFUSE A FEW OF THE SCHEDULED 2100 MEDICATIONS. HE DID HAVE C/O OF FLANK PAIN, BUT REFUSED ANY PAIN MEDS. HE ALSO STATED THAT HIS CALVES WERE MORE SWOLLEN AND PAINFUL D/T TO FLUID RETENTION. THE PT RETURNED TO BED FROM THE CHAIR AND WE ELEVATED HIS LEGS. HE SEEMS TO BE MORE COMFORTABLE AND IS SLEEPING. HE HAS BEEN NPO SINCE MIDNIGHT IN PREPERATION FOR THE PERMACATH REMOVAL AND REPLACEMENT. HIS DAUGHTER IS AT BEDSIDE ASSISTING WITH PT CARE. WE'LL CONTINUE TO MONITOR.
[2021-10-30 10:42] LABS: BASOPHILS ABSOLUTE AUTO 0.04 K/mm3 (0.00-0.23); BASOPHILS PERCENT AUTO 1 % (0-2); EOSINOPHILS ABSOLUTE AUTO 0.19 K/mm3 (0.00-0.68); EOSINOPHILS PERCENT AUTO 2 % (0-6); Hemoglobin 9.6 g/dL (13.5-17.5); IMMATURE GRAN ABSOLUTE AUTO 0.09 K/mm3 (0.00-0.10); IMMATURE GRAN PERCENT AUTO 1 % (0-1); LYMPHOCYTES ABSOLUTE AUTO 0.96 K/mm3 (0.84-5.20); LYMPHOCYTES PERCENT AUTO 11 % (21-46); MONOCYTES ABSOLUTE AUTO 0.86 K/mm3 (0.16-1.47); MONOCYTES PERCENT AUTO 10 % (4-13); Mean Corpuscular HGB 30.6 pg (26.0-34.0); Mean Corpuscular Volume 96 fL (80-100); Mean Platelet Volume 10.3 fL (9.1-12.4); NEUTROPHILS PERCENT AUTO 75 % (41-73); Platelet Count 296 K/mm3 (150-400); RDW Coefficient Variation 14.1 % (11.7-14.2); RDW Standard Deviation 49.4 fL (35.1-46.3); Red Blood Cell Count 3.14 M/mm3 (4.30-5.90); White Blood Cell Count 8.64 K/mm3 (4.00-11.30)
[2021-10-30 11:31] LABS: Albumin, Blood 2.5 g/dL (3.4-5.0); Anion Gap 15 mmol/L (6-16); Blood Urea Nitrogen 94 mg/dL (8-24); Bun/Creatinine Ratio 9.9 (12.0-20.0); CO2, Blood 19 mmol/L (21-32); Calcium, Blood 8.5 mg/dL (8.5-10.1); Chloride, Blood 102 mmol/L (98-108); Creatinine, Blood 9.48 mg/dL (0.60-1.20); Glomerular Filtration Rate 5 (60-); Glucose, Blood 96 mg/dL (70-99); Phosphorus, Blood 6.2 mg/dL (2.5-4.9); Potassium, Blood 5.3 mmol/L (3.5-5.5); Sodium, Blood 136 mmol/L (136-145)
--- NOTE | 2021-10-30 16:04 | NUR ---
LEFT UNIT FOR PROCEDURE. PT TRANSPORTED FOR PROCEDURE TO PLACE A TDC. PLACED CALL TO NOTIFY DIALYSIS NURSE THAT PT WILL BE READY FOR DIALYSIS ONCE TDC IS IN.
--- NOTE | 2021-10-30 19:43 | NUR ---
LATE ENTRY 1715: PT RETURNED TO ROOM POST TDC PLACEMENT. PT GROGGY FROM SEDATION FOR PROCEDURE. DIALYSIS NURSE PREPARING FOR DIALYSIS IN THE ROOM. NEW R CHEST WALL SITE WNL'S. DRESSING C/D/I. NO BLEEDING OR SWELLING NOTED. FAMILY AT BEDSIDE.
--- NOTE | 2021-10-31 05:01 | NUR ---
SUPPORT REPRESENTATIVE SUMMARY ADMITTED FOR ACUTE RENAL FAILURE. PT IS FULL CODE. HE HAD A RIGHT UPPER CHEST PERMACATH PLACED AND DIALYSIS COMPLETED YESTERDAY. PT REFUSED MANY OF HIS NIGHT MEDICATIONS NOT WANTING TO "UNDO" THE DIALYSIS. ORDER OBTAINED TO REMOVE THE POWERGLIDE AFTER PT COMPLAINED OF "BURNING" TO THE AREA. TELE ALSO REMOVED WITHOUT ANY INCIDENT. HE IS A 1PA WITH FWW - DAUGHTER SLEEPING IN ROOM AND ASSISTING HIM. PLAN TO BE DISCHARGED TODAY HE ALREADY HAS AN OUTPATIENT DIALYSIS CHAIR.
[2021-10-31 08:27] LABS: Bun/Creatinine Ratio 9.1 (12.0-20.0); Calcium, Blood 8.2 mg/dL (8.5-10.1); Creatinine, Blood 6.46 mg/dL (0.60-1.20); Potassium, Blood 4.6 mmol/L (3.5-5.5)
[2021-10-31] MEDS ORDERED: CATAPRES-TTS 11 EAC1 TOP (10:17)
[2021-10-31] MEDS ORDERED: DOCUZEN 8.6-501 EACH PO (10:18)
[2021-10-31] MEDS ORDERED: GUAI600T33 PO (10:18)
[2021-10-31] MEDS ORDERED: TAMS.4ER PO (10:19)
--- NOTE | 2021-10-31 16:02 | NUR ---
PT DISCHARGED WIT DC INSRUCTIONS, RX FAXED [facility]. SENT HOME WITH BELONGINGS. AND DAUGHTER TO DRIVE PT HOME. PERMACATH APPEARS WNL, NO BLEEDING, DRESSING CDI. WHEELCHARE TO PRIVATE CAR
== END 2021-10-31 10:52 | disposition home or self-care (01) | DRG 673 ==
LOC: ER 04:06 → ERHOLD 10:32 → MEDS 10:32
PROVIDERS: Emergency Medicine; Family Medicine; Internal Medicine; Internal Medicine Nephrology; Student in an Organized Health Care Education/Training Program; Surgery; ADMIT Internal Medicine
PROC: 3E03317 Introduction of Other Thrombolytic into Peripheral Vein, Percutaneous Approach (ICD-10-PCS; 2021-10-28)
PROC: 5A1D70Z Performance of Urinary Filtration, Intermittent, Less than 6 Hours Per Day (ICD-10-PCS; principal; 2021-10-30)
PROC: 0JH63XZ Insertion of Tunneled Vascular Access Device into Chest Subcutaneous Tissue and Fascia, Percutaneous Approach (ICD-10-PCS; 2021-10-30)
PROC: 02HV33Z Insertion of Infusion Device into Superior Vena Cava, Percutaneous Approach (ICD-10-PCS; 2021-10-30)
PROC: B548ZZA Ultrasonography of Superior Vena Cava, Guidance (ICD-10-PCS; 2021-10-30)
PROC: 05PY03Z Removal of Infusion Device from Upper Vein, Open Approach (ICD-10-PCS; 2021-10-30)
PROC: 0JPT3XZ Removal of Tunneled Vascular Access Device from Trunk Subcutaneous Tissue and Fascia, Percutaneous Approach (ICD-10-PCS; 2021-10-30)
DX: N17.0 Acute kidney failure with tubular necrosis (principal); I50.23 Acute on chronic systolic (congestive) heart failure; T82.41XA Breakdown (mechanical) of vascular dialysis catheter, initial encounter; I47.2 Ventricular tachycardia; N13.30 Unspecified hydronephrosis; Z20.822 Contact with and (suspected) exposure to COVID-19; H40.9 Unspecified glaucoma; E87.5 Hyperkalemia; G89.29 Other chronic pain; M54.9 Dorsalgia, unspecified; E86.0 Dehydration; I11.0 Hypertensive heart disease with heart failure; K59.03 Drug induced constipation; T40.605A Adverse effect of unspecified narcotics, initial encounter; R11.2 Nausea with vomiting, unspecified; I71.4 Abdominal aortic aneurysm, without rupture; R55 Syncope and collapse; E87.6 Hypokalemia; I25.10 Atherosclerotic heart disease of native coronary artery without angina pectoris; Z87.891 Personal history of nicotine dependence; Z86.73 Personal history of transient ischemic attack (TIA), and cerebral infarction without residual deficits; Z85.51 Personal history of malignant neoplasm of bladder; Z95.1 Presence of aortocoronary bypass graft; Z88.6 Allergy status to analgesic agent; Z88.8 Allergy status to other drugs, medicaments and biological substances; Z79.82 Long term (current) use of aspirin; Z79.899 Other long term (current) drug therapy; Y83.1 Surgical operation with implant of artificial internal device as the cause of abnormal reaction of the patient, or of later complication, without mention of misadventure at the time of the procedure
CPT/HCPCS: 0241U; 36415; 36558; 36589; 36593; 51798; 71045; 71046; 76770; 76775; 76937; 77001; 80047; 80048; 80053; 80069; 80074; 81001; 82570; 82947; 83615; 83735; 84100; 84132; 84145; 84300; 84484; 84550; 85014; 85018; 85025; 86317; 87086; 93005; 93010; 94762; 96361; 96374; 96375; 96376; 99152; 99153; 99285-25; A9270; C1750; C1769; C1894; J0360; J0610; J0690; J0696; J1100; J1644; J1815; J1940; J2060; J2212; J2250; J2405; J2704; J2997; J3010; J7030; J7040; J7060